=== PATIENT | female | born 1980 | race Caucasian/White ===

== ENCOUNTER 2018-09-08 12:17 | Emergency (ER) | payer SELFPAY ==
[2018-09-08 12:22] VITALS: BP 156/97; PULSE 108; RESP 18; TEMP 36.6; O2SAT 97
--- NOTE | 2018-09-08 12:34 | W.ED.GENAD ---
Discharge Plan Disposition Patient Disposition: HOME Condition: Fair Discharge Details Chief Complaint: Nausea/Vomit/Diar Clinical Impression: Gastroenteritis, Ovarian cyst, Endometrial thickening on ultrasound, Abdominal pain Primary Care Provider: Martin Ivan ED Provider: Racquel Waite Home Meds and New Rx's Prescriptions: New ondansetron 4 mg tablet,disintegrating 4 mg PO QID PRN (Reason: nausea and vomiting) Qty: 10 RF: 0 Continued ibuprofen 200 MG capsule 1 cap PO PRN PRNRF: 0 Discharge Instructions Instructions: Ovarian Cyst (ED), Gastroenteritis (ED), Abdominal Pain (ED) Additional Instructions: Encourage hydration. Tylenol and/or Ibuprofen as needed for discomfort. Zofran as prescribed for nausea/vomiting. Please follow up with primary care in one week if not improving. Please follow up with [facility] for reevaluation and discuss your ultrasound findings including endometrial thickening and ovarian cyst. If you develop increased pain, fevers/chills, inability to stay hydrated or other new/worseneing symptoms please seek care urgently once again. Referrals: Ratna Tristan MD [ [facility] STAFF PHYSICIAN] - ([phone]) Martin Ivan MD [Primary Care Provider] - Discharge Data Discharge Date/Time-TO BE ENTERED AT DEPARTURE: 09/08/18 16:27 Medical Decision Making Patient is a 38 year old female presenting today with c/c of abdominal pain and nausea, vomiting, diarrhea that began yesterday. Past surgical history significant for appendectomy and left oophorectomy. She reports she is vomited x1 today. States the last episode of diarrhea was around 8:00 this morning. States that she believes there is blood in her stool this morning and that the stool looked like gummy worms. Denies nausea currently. Reports she had diminished appetite. Is indicating low central abdomen is area of discomfort. No vaginal discharge. No dysuria, dyspareunia, change in urinary habits. LMP finished 2 days ago. On exam, patient has an obese abdomen is soft with no central tenderness. Pain seems to be primarily over the lower aspect of the pannus but no skin changes are noted. Patient appears nontoxic but slightly uncomfortable. Lungs are clear. She noted to be tachycardic at 108. She is afebrile reports is been afebrile at home. Plan obtain CT to evaluate for focal tenderness, laboratory evaluation. Will give Zofran and morphine to help with discomfort and hydrate the patient. Discussed this plan with the patient who is in agreement CT negative per radiologist. Labs without significant abnormality. Patient endorses RODRIGUEZ after morphine. Reports that she gets HAs frequently. will give Toradol. Findings with the patient. This point, she continues to have this low central discomfort. We will obtain transvaginal ultrasound to evaluate for any uterine or right ovarian source of her discomfort Ultrasound significant for endometrial thickening and small right ovarian cyst with no evidence of torsion. Discussed these findings with the patient. Advise follow-up [facility] discussed these findings further. She has been seen by them historically. Advised her discomfort at this time is likely primarily associated with gastroenteritis. Encourage hydration. Tylenol and/or ibuprofen as needed for discomfort. Should be prescribed Zofran for any recurrence of her nausea. Has been doing well here and tolerating fluids. All the questions and concerns were addressed and she is in agreement this plan HPI General Mode of arrival: ambulatory. Date/Time Provider Initiated Documentation: 09/08/18 12:20. Limitations to Documentation: no limitations. Information obtained by: patient. History of Present Illness 38 year old F presents to the emergency department with the chief complaint of abdominal pain, nausea, vomiting, diarrhea, described as moderate, Quality is described as aching, and is localized to the abdomen. Patient reports no radiation. Patient started experiencing this day(s) (1) and it has been constant. No relieving factors improve symptom(s), No exacerbating factors reported . Patient notes loss of appetite and nausea/vomiting; denies chest pain, cough, fever/chills, headaches, rash and shortness of breath. Patient did receive the following treatments prior to arrival, none Related Data Home Medications Medication Instructions Recorded Confirmed ibuprofen 1 cap PO PRN PRN 06/07/14 09/08/18 ondansetron 4 mg PO QID PRN #10 tab 09/08/18 Previous Rx's Medication Instructions Recorded ondansetron 4 mg PO QID PRN #10 tab 09/08/18 Allergies Allergy/AdvReac Type Severity Reaction Status Date / Time No Known Drug Allergies Allergy none Unverified 09/08/18 12:26 General Stated Complaint: Nausea/Vomit/Diar KALEIGH: 3 Review of Systems Constitutional Reports as per HPI, Denies chills, Denies fatigue, Denies fever(s) and Denies headache(s) ENT Denies headache(s) Cardiovascular Reports as per HPI, Denies chest pain and Denies dyspnea Respiratory Reports as per HPI, Denies cough and Denies dyspnea Gastrointestinal Reports as per HPI Genitourinary Denies abnormal vaginal bleeding (finished LMP 2 days ago), Denies hematuria, Denies urinary frequency, Denies genital lesions, Denies dyspareunia, Denies flank pain and Denies vaginal discharge Musculoskeletal Reports as per HPI and Denies back pain Integumentary/Breasts Reports as per HPI and Denies rash Neurologic Denies headache(s) Endocrine Denies fatigue [facility] Surgical History Oophrectomy, Left (~2007) Social History Smoking/Tobacco Use Status: Current every day Exam Const General: cooperative, healthy appearing, comfortable, no acute distress and well developed Nutritional Appearance: well nourished and overweight Orientation: alert and awake HENPR Head: normal to inspection Mouth: moist mucous membranes Resp Effort & Inspection: normal respiratory effort, able to speak in complete sentences and no respiratory distress Auscultation: clear to auscultation bilaterally, no rales, no rhonchi and no wheezes Cardio Rate: regular rate Rhythm: regular rhythm Heart Sounds: S1 normal and S2 normal GI Inspection: non-distended, no incisions and obesity Palpation: soft, no hepatosplenomegaly, not firm, no guarding, not rigid, tender (low central abdomen) not at McBurney's point, obturator sign negative, psoas sign negative and with no rebound tenderness and No ascites Percussion: normal to percussion Auscultation: normal bowel sounds Back/Spine/Pelvis Back: no CVA tenderness Skin General skin exam: no rashes or lesions noted Trauma: no lacerations or abrasions Neuro General: alert and awake Cognition: normal cognition Speech: speech normal Gait: normal gait Psych Appearance: grossly normal and well kempt Mental Status: mental status grossly normal Speech and Movement: speech and movement normal Course Vital Signs Temperature 36.6 C 09/08/18 12:22 Pulse 108 H 09/08/18 12:22 Respiratory Rate 18 09/08/18 12:22 Blood Pressure 156/97 H 09/08/18 12:22 Pulse Oximetry 97 09/08/18 12:22 Temperature 36.6 C 09/08/18 12:22 Temperature Source Skin 09/08/18 12:22 Pulse 108 H 09/08/18 12:22 Respiratory Rate 18 09/08/18 12:22 Respiratory Effort 09/08/18 12:26 Blood Pressure 156/97 H 09/08/18 12:22 Blood Pressure Position Sitting 09/08/18 12:22 Pulse Oximetry 97 09/08/18 12:22 Pain Level 8 09/08/18 12:22 Comment 09/08/18 12:22
--- NOTE | 2018-09-08 13:07 | ED.GENADUL_ITS ---
Discharge Plan Disposition Patient Disposition: HOME Condition: Fair Discharge Details Chief Complaint: Nausea/Vomit/Diar Clinical Impression: Gastroenteritis, Ovarian cyst, Endometrial thickening on ultrasound, Abdominal pain Primary Care Provider: Martin Ivan ED Provider: Racquel Waite Home Meds and New Rx's Prescriptions: New ondansetron 4 mg tablet,disintegrating 4 mg PO QID PRN (Reason: nausea and vomiting) Qty: 10 RF: 0 Continued ibuprofen 200 MG capsule 1 cap PO PRN PRNRF: 0 Discharge Instructions Instructions: Ovarian Cyst (ED), Gastroenteritis (ED), Abdominal Pain (ED) Additional Instructions: Encourage hydration. Tylenol and/or Ibuprofen as needed for discomfort. Zofran as prescribed for nausea/vomiting. Please follow up with primary care in one week if not improving. Please follow up with [facility] for reevaluation and discuss your ultrasound findings including endometrial thickening and ovarian cyst. If you develop increased pain, fevers/chills, inability to stay hydrated or other new/worseneing symptoms please seek care urgently once again. Referrals: Ratna Tristan MD [ [facility] STAFF PHYSICIAN] - ([phone]) Martin Ivan MD [Primary Care Provider] - Discharge Data Discharge Date/Time-TO BE ENTERED AT DEPARTURE: 09/08/18 16:27 Medical Decision Making Patient is a 38 year old female presenting today with c/c of abdominal pain and nausea, vomiting, diarrhea that began yesterday. Past surgical history significant for appendectomy and left oophorectomy. She reports she is vomited x1 today. States the last episode of diarrhea was around 8:00 this morning. States that she believes there is blood in her stool this morning and that the stool looked like gummy worms. Denies nausea currently. Reports she had diminished appetite. Is indicating low central abdomen is area of discomfort. No vaginal discharge. No dysuria, dyspareunia, change in urinary habits. LMP finished 2 days ago. On exam, patient has an obese abdomen is soft with no central tenderness. Pain seems to be primarily over the lower aspect of the pannus but no skin changes are noted. Patient appears nontoxic but slightly uncomfortable. Lungs are clear. She noted to be tachycardic at 108. She is afebrile reports is been afebrile at home. Plan obtain CT to evaluate for focal tenderness, laboratory evaluation. Will give Zofran and morphine to help with discomfort and hydrate the patient. Discussed this plan with the patient who is in agreement CT negative per radiologist. Labs without significant abnormality. Patient endorses RODRIGUEZ after morphine. Reports that she gets HAs frequently. will give Toradol. Findings with the patient. This point, she continues to have this low central discomfort. We will obtain transvaginal ultrasound to evaluate for any uterine or right ovarian source of her discomfort Ultrasound significant for endometrial thickening and small right ovarian cyst with no evidence of torsion. Discussed these findings with the patient. Advise follow-up [facility] discussed these findings further. She has been seen by them historically. Advised her discomfort at this time is likely primarily associated with gastroenteritis. Encourage hydration. Tylenol and/or ibuprofen as needed for discomfort. Should be prescribed Zofran for any recurrence of her nausea. Has been doing well here and tolerating fluids. All the questions and concerns were addressed and she is in agreement this plan HPI General Mode of arrival: ambulatory . Date/Time Provider Initiated Documentation: 09/08/18 12:20 . Limitations to Documentation: no limitations . Information obtained by: patient . History of Present Illness 38 year old F presents to the emergency department with the chief complaint of abdominal pain, nausea, vomiting, diarrhea, described as moderate, Quality is described as aching, and is localized to the abdomen. Patient reports no radiation. Patient started experiencing this day(s) (1) and it has been constant. No relieving factors improve symptom(s), No exacerbating factors reported . Patient notes loss of appetite and nausea/vomiting; denies chest pain, cough, fever/chills, headaches, rash and shortness of breath. Patient did receive the following treatments prior to arrival, none Related Data Home Medications Medication Instructions Recorded Confirmed ibuprofen 1 cap PO PRN PRN 06/07/14 09/08/18 ondansetron 4 mg PO QID PRN #10 tab 09/08/18 Previous Rx's Medication Instructions Recorded ondansetron 4 mg PO QID PRN #10 tab 09/08/18 Allergies Allergy/AdvReac Type Severity Reaction Status Date / Time No Known Drug Allergies Allergy none Unverified 09/08/18 12:26 General Stated Complaint: Nausea/Vomit/Diar KALEIGH: 3 Review of Systems Constitutional Reports as per HPI, Denies chills, Denies fatigue, Denies fever(s) and Denies headache(s) ENT Denies headache(s) Cardiovascular Reports as per HPI, Denies chest pain and Denies dyspnea Respiratory Reports as per HPI, Denies cough and Denies dyspnea Gastrointestinal Reports as per HPI Genitourinary Denies abnormal vaginal bleeding (finished LMP 2 days ago), Denies hematuria, Denies urinary frequency, Denies genital lesions, Denies dyspareunia, Denies flank pain and Denies vaginal discharge Musculoskeletal Reports as per HPI and Denies back pain Integumentary/Breasts Reports as per HPI and Denies rash Neurologic Denies headache(s) Endocrine Denies fatigue [facility] Surgical History Oophrectomy, Left (~2007) Social History Smoking/Tobacco Use Status: Current every day Exam Const General: cooperative, healthy appearing, comfortable, no acute distress and well developed Nutritional Appearance: well nourished and overweight Orientation: alert and awake HENVT Head: normal to inspection Mouth: moist mucous membranes Resp Effort & Inspection: normal respiratory effort, able to speak in complete sentences and no respiratory distress Auscultation: clear to auscultation bilaterally, no rales, no rhonchi and no wheezes Cardio Rate: regular rate Rhythm: regular rhythm Heart Sounds: S1 normal and S2 normal GI Inspection: non-distended, no incisions and obesity Palpation: soft, no hepatosplenomegaly, not firm, no guarding, not rigid, tender (low central abdomen) not at McBurney's point, obturator sign negative, psoas sign negative and with no rebound tenderness and No ascites Percussion: normal to percussion Auscultation: normal bowel sounds Back/Spine/Pelvis Back: no CVA tenderness Skin General skin exam: no rashes or lesions noted Trauma: no lacerations or abrasions Neuro General: alert and awake Cognition: normal cognition Speech: speech normal Gait: normal gait Psych Appearance: grossly normal and well kempt Mental Status: mental status grossly normal Speech and Movement: speech and movement normal Course Vital Signs Temperature 36.6 C 09/08/18 12:22 Pulse 108 H 09/08/18 12:22 Respiratory Rate 18 09/08/18 12:22 Blood Pressure 156/97 H 09/08/18 12:22 Pulse Oximetry 97 09/08/18 12:22 Temperature 36.6 C 09/08/18 12:22 Temperature Source Skin 09/08/18 12:22 Pulse 108 H 09/08/18 12:22 Respiratory Rate 18 09/08/18 12:22 Respiratory Effort 09/08/18 12:26 Blood Pressure 156/97 H 09/08/18 12:22 Blood Pressure Position Sitting 09/08/18 12:22 Pulse Oximetry 97 09/08/18 12:22 Pain Level 8 09/08/18 12:22 Comment 09/08/18 12:22
[2018-09-08] MEDS: Normal Saline 1,000 ML 1000 ML IV (13:18)
[2018-09-08] MEDS: MORPHine 10 MG/ML VIAL 2 MG IVP (13:19)
[2018-09-08] MEDS: Ondansetron 4 MG/2 ML VIAL IVP (13:19)
[2018-09-08 13:30] LABS: Abs Immature Grans 0.04 k/cumm (0.0-0.09); Absolute Basophil Count 0.06 k/cumm (0.0-0.2); Absolute Eosinophil Count 0.22 k/cumm (0.0-0.7); Absolute Lymphocyte Count 1.45 k/cumm (1.2-3.4); Absolute Monocyte Count 0.57 k/cumm (0.11-0.7); Absolute Neutrophil Count 5.09 k/cumm (1.2-6.7); Basophils % 0.8; HCT 46.2 % (36.0-46.0); HGB 15.2 g/dL (12.0-15.5); Immature Grans % 0.5; Lymphocytes % 19.5; Mean Corp. HGB Concentration 32.9 g/dL (32.0-36.0); Mean Corpuscular Hemoglobin 30.7 pg (27.0-33.0); Mean Corpuscular Volume 93.3 fL (80-95); Mean Platelet Volume 8.7 fL (8.0-11.0); Monocytes % 7.7; Neutrophils % 68.5; Platelet Count 295 x1000/uL (130-400); RBC 4.95 m/cumm (4.00-5.20); RBC Distribution Width 13.6 % (11.7-14.6); White Blood Cell Count 7.43 k/cumm (4.4-10.8)
[2018-09-08 13:52] LABS: ALT 69 U/L (12-78); AST 51 U/L (15-37); Albumin 3.7 g/dL (3.4-5.0); Alkaline Phosphatase 88 U/L (46-116); Anion Gap 11.2 mmol/L (3-11); BUN 12 mg/dL (7-18); Bilirubin, Total 0.4 mg/dL (0.2-1.0); CO2 27.8 mmol/L (21.0-32.0); CREATININE 0.76 mg/dL (0.55-1.02); Calcium 9.5 mg/dL (8.5-10.1); Chloride 99 mmol/L (98-107); Glucose 109 mg/dL (70-100); Lipase 186 U/L (73-393); Magnesium 1.6 mg/dL (1.8-2.4); Sodium 138 mmol/L (136-145); Total Protein 7.9 g/dL (6.4-8.2)
[2018-09-08 14:09] LABS: Bilirubin Small (Negative); Blood Trace-lysed (Negative); Clarity Cloudy; Glucose Negative (Negative); Ketones Trace mg/dL (Negative); Leukocyte Esterase Negative (Negative); Nitrite Negative (Negative); Specific Gravity >= 1.030 (1.005-1.025); Urobilinogen 0.2 EU/dL (Up TO 0.2)
[2018-09-08 14:20] LABS: WBC 0-2 HPF (0-5)
[2018-09-08 14:21] LABS: Bacteria Moderate HPF (Negative); Crystals Moderate Amorphous HPF (Negative); Epithelial Cells Many HPF (Negative); Mucus Moderate (Negative)
[2018-09-08 14:22] LABS: C & S Indicated? No/Sq. Contamination
[2018-09-08] MEDS: Omnipaque 350 MG/ML 100 ML BTL IJ (14:42)
--- NOTE | 2018-09-08 14:42 | DI.CT_ITS ---
SYMPTOMS/DIAGNOSIS: POINT TENDER LOW CENTRAL ABDOMEN, NAUSEA/VOMITING/DIARRHEA ABDOMINAL AND PELVIC CT: CT examination of the abdomen and pelvis was performed with a bolus infusion of 100 cc of Omnipaque 350. Images obtained through the lung bases are unremarkable. Liver and spleen are unremarkable except for probable hepatic steatosis. Gallbladder and bile ducts are unremarkable. Pancreas appears normal. Abdominal aorta is of normal diameter and no major vascular abnormality is seen. Adrenals and kidneys are normal in appearance. No evidence of urinary tract obstruction or calcification. No significant abdominal wall hernia. No abdominal or pelvic adenopathy is seen. D[employer]DER structures appear intact. There are vascular clips at the expected location of the appendix, probably representing a previous appendectomy. No evidence of diverticulitis or bowel obstruction. CONCLUSION: No evidence of acute intraabdominal process.
[2018-09-08] MEDS: Ketorolac 15 MG/ML VIAL IVP (15:08)
[2018-09-08 15:09] VITALS: BP 123/67; PULSE 84; RESP 16; O2SAT 97
--- NOTE | 2018-09-08 15:11 | DI.US_ITS ---
SYMPTOM/DIAGNOSIS: LOW CENTRAL PAIN. PELVIC ULTRASOUND: A retroverted uterus is demonstrated. The transabdominal and transvaginal examination reveals a uterus which measures 9x3 cm in length, 5.3 cm in height and 5.4 cm in width with an endometrial stripe thickness of 13.9 mm. The right ovary is not identified. The left ovary measures 4.5 x 2.2 x 3.0 cm and contains apparent cysts, one of which measures 1.4 x 1.1 x 1.7 cm. The second cyst 2.2 x 1.4 x 1.4 cm. There is no evidence of free pelvic fluid. There is no evidence of a pelvic mass. The kidneys are unremarkable. SUMMARY: Small left ovarian cysts are demonstrated and are likely functional. The right ovary is not identified, and there is a question regarding some thickening of the endometrial stripe given the patient's cycle. There is no demonstrated mass in the uterus or evidence of an endometrial lesion. These findings to be correlated with the patient's clinical status and if appropriate a follow up ultrasound could be obtained in 6-8 weeks.
[2018-09-08 16:28] VITALS: BP 118/67; PULSE 79; RESP 18; TEMP 36.7; O2SAT 98
--- NOTE | 2018-09-08 16:40 | DI.VRAD_ITS ---
EXAM: US Retroperitoneal Limited, Kidneys EXAM DATE/TIME: 09/08/2018 4:04 PM CLINICAL HISTORY: 38 years old, female; Pain; Other: Low central pain TECHNIQUE: Real-time ultrasound of the retroperitoneum with image documentation. Examination was focused on the kidneys. COMPARISON: CT Abdomen^ROUTINE ABDOMEN PELVIS WITH CONTRAST (Adult) 09/08/2018 2:26 PM FINDINGS: Right kidney: No stones. No hydronephrosis. Left kidney: No stones. No hydronephrosis. IMPRESSION: No acute findings. EXAM: US Pelvis Complete, Transabdominal and US Pelvis, Transvaginal EXAM DATE/TIME: 09/08/2018 4:04 PM CLINICAL HISTORY: 38 years old, female; Pain; Other: Low central pain TECHNIQUE: Real-time transabdominal and transvaginal pelvic ultrasound (complete) with image documentation. Transvaginal imaging was used for better evaluation of the endometrium and adnexa. COMPARISON: CT Abdomen^ROUTINE ABDOMEN PELVIS WITH CONTRAST (Adult) 09/08/2018 2:26 PM FINDINGS: Uterus/cervix: Endometrium is borderline thickened at 14 mm. Right adnexa: Right ovary was not identified on this exam, and may have been surgically removed. Left adnexa: A minimally complex left ovarian cyst is present, and seen to measure up to 2.2 cm within septations, but mostly anechoic internal contents. This may also represent separate but adjacent ovarian cysts/follicles. Normal color Doppler flow. Free fluid: None. IMPRESSION: 1. Minimally complex left ovarian cyst, otherwise no acute findings. 2. Right ovary not identified, and may have been surgically removed. Dictated and Authenticated by: Fredy Mohr MD. Ordering:ALEC Clement MD
== END 2018-09-08 16:27 | disposition home or self-care (01) ==
PROVIDERS: Emergency Provider Physician Assistant; PCP Family Medicine
DX: K52.9 Noninfective gastroenteritis and colitis, unspecified (principal); N83.201 Unspecified ovarian cyst, right side; R93.89 Abnormal findings on diagnostic imaging of other specified body structures; R10.30 Lower abdominal pain, unspecified
CPT/HCPCS: 80053; 83690; 96361; 96374; 96375; 99285; 74177; 76830; 76856; 81003; 81015; 83735; 85025; J1885; J2270; J2405; J3490